=== PATIENT | female | born 1955 | race Caucasian/White ===

== ENCOUNTER → 2016-07-30 | Outpatient (CLI) | payer BC ==
--- NOTE | 2016-07-30 11:44 | KCIC ---
EXAM: BILATERAL LOWER EXTREMITY VENOUS DOPPLER. HISTORY: Lower extremity pain/swelling. FINDINGS: Grayscale and doppler analysis of the lower extremity deep venous systems was performed with graded compression and augmentation. The common femoral, greater saphenous, deep femoral, superficial femoral, popliteal, and calf veins were assessed. There is no evidence of deep venous thrombosis.][ IMPRESSION: No evidence of deep venous thrombosis. Electronically signed by: Davie Bolanos (Jul 30, 2016 11:43:17)
== END | disposition home or self-care (01) ==
LOC: KCIC US 10:54
PROVIDERS: ATTEND Nurse Practitioner
DX: M79.89 Other specified soft tissue disorders (principal); M79.605 Pain in left leg; M79.604 Pain in right leg
CPT/HCPCS: 93970

== ENCOUNTER → 2017-04-18 | Outpatient (CLI) | payer BC ==
--- NOTE | 2017-04-18 11:20 | KCIC ---
EXAM: Bilateral screening mammogram. HISTORY: 62-year-old female presents for screening mammography. TECHNIQUE: Full-field digital craniocaudal and mediolateral oblique views of both breasts are obtained for evaluation. Computer aided detection with CueD software version 9.3 was applied. COMPARISON: 02/05/2016 and 01/06/2015 BREAST PARENCHYMAL DENSITY: Level B - Scattered fibroglandular densities. FINDINGS: There is a circumscribed nodular density within the lateral aspect of the right breast at mid depth, without a correlate on prior studies. There is stable focal asymmetries and areas of nodularity within the left breast. There are few benign calcifications. IMPRESSION: BI-RADS Category 0: Additional imaging needed. RECOMMENDATION: Further evaluation with a spot compression craniocaudal view and full field true lateral view of the right breast and right breast sonogram to assess a small circumscribed nodular density within the lateral breast is recommended. If your mammogram demonstrates that you have dense breast tissue, which could hide abnormalities, and if you have other risk factors for breast cancer that have been identified, you might benefit from supplemental screening tests that may be suggested by your ordering physician. Dense breast tissue, in and of itself, is a relatively common condition. This information is not provided to cause undue concern, but rather to raise your awareness and to promote discussion with your physician regarding the presence of other risk factors, in addition to dense breast tissue. A report of your mammography results will be sent to you and your physician. You should contact your physician if you have any questions or concerns regarding this report. Mammography is a sensitive method for finding small breast cancers, but it does not detect them all and is not a substitute for careful clinical examination. A negative mammogram does not negate a clinically suspicious finding and should not result in delay in biopsying a clinically suspicious abnormality. PQRS compliance statement - Patient information was entered into a reminder system with a target due date for the next mammogram. "Our facility is accredited by the [employer] Mammography [employer]." Electronically signed by: Thi Mendez MD (04/18/2017 11:17 AM) [id number]
== END | disposition home or self-care (01) ==
LOC: KCIC MAMMO 10:32
PROVIDERS: ATTEND Family Medicine
DX: Z12.31 Encounter for screening mammogram for malignant neoplasm of breast (principal)
CPT/HCPCS: G0202; 77067

== ENCOUNTER → 2017-04-29 | Outpatient (CLI) | payer BC ==
--- NOTE | 2017-04-29 15:45 | KCIC ---
Diagnostic digital mammograms right breast: Reason for examination nodular density on screening. Comparison is made to previous study dated 04/18/2017. Coned compression views were obtained in CC and lateral projections. With these additional views, there appears to be a nodule persists seen at the 9:00 position. This fairly well-circumscribed be further evaluated with ultrasound. IMPRESSION: Small nodular density at the 9:00 position which has a benign appearance. Ultrasound to follow. BI-RADS Category 0: Incomplete. Ultrasound to follow. Right breast ultrasound: Ultrasound examination was performed with attention to the 9:00 position. There is a small hypoechoic lesion consistent with a complicated cyst measuring 6 mm in size. No suspicious lesions are seen. No abnormal appearing lymph nodes are seen in the axilla. IMPRESSION: 6 mm hypoechoic nodule probably representing a complicated cyst at the 9:00 position and corresponding to the area of mammographic concern. Recommend reevaluation with ultrasound in 6 months. BI-RADS Category 3: Probably Benign. "Our facility is accredited by the [employer] Mammography [employer]." This patient's information has been entered into a reminder system for the patient to be notified with the results of her examination and a target date for the next mammogram. Electronically signed by: Joaquina Roque MD (04/29/2017 3:42 PM) [id number]
== END | disposition home or self-care (01) ==
LOC: KCIC MAMMO 07:52
PROVIDERS: ATTEND Family Medicine
DX: R92.8 Other abnormal and inconclusive findings on diagnostic imaging of breast (principal)
CPT/HCPCS: 76641; G0206; 77065